=== PATIENT | female | born 1995 | race Caucasian/White ===

== ENCOUNTER 2024-03-21 07:26 | Emergency (ER) | payer OTHER, SELFPAY ==
[2024-03-21] VITALS (9 sets, daily range): BP systolic 106–147; BP diastolic 59–96; BMI 31.4
--- NOTE | 2024-03-21 07:53 | ED.GENMED ---
History of Present Illness
General
Chief Complaint: Breathing Problem
Source: patient
Time Seen by Provider: 03/21/24 07:44
History of Present Illness
History of Present Illness:
20-year-old female presents to the emergency room complaining of pain in the right chest. Patient began feeling uncomfortable about 3 days ago. It started with what she describes as pain like her diaphragm was sore in the right side. She now also
has which she describes as a 'stitch' in the posterior lateral right thorax. This is worse with taking a deep breath. Patient does not feel short of breath or short of breath with exertion. However she feels like she cannot take a deep breath
because of the pain. Patient states they did travel extensively earlier in the week to worm pick[employer] a car. They spent hours driving back and forth. She does take oral control pills. She does not smoke. She denies any discomfort in her lower
extremities.
Phy Exam
Physical Exam
Physical Exam:
General: Awake, Alert, Oriented X3. No acute distress.
Vitals: unremarkable
Head: Atraumatic
Eyes: Pupils equal, EOMI
Throat: Airway intact, no exudates
Neck: Trachea midline
Lungs: Clear and equal b/l
Heart: Regular rate, no murmurs
Abd: Soft, Nontender, No pulsatile mass
Neuro: Nonfocal
Skin: Warm, dry, no rash
Extremities: pulses equal b/l, no edema
Scores
PE Low Risk Score
Hemodynamically unstable?: No
Thrombolysis or embolectomy needed?: No
Active bleeding or high risk for bleeding?: No
>24hrs on supplemental O2 required to maintain SaO2 >90%?: No
PE diagnosed while on anticoagulation?: No
Severe pain needing IV medication required for >24 hours?: No
Medical or social reason for admission >24 hours?: No
Creatinine clearance < 30 mL/min by Cockcroft-Gault?: No
Severe liver impairment?: No
?: No
Documented hx of heparin-induced thrombocytopenia (HIT)?: No
High risk features on laboratory testing?: No
Course
Orders/Labs/Results
Orders:
Orders
03/21/24 07:37
EKG [Electrocardiogram (*1)] Urgent
Reason for Study: Chest Pain
EKG- Treatment ONCE
03/21/24 07:52
Cardiac Monitoring- Treatment ONCE
Ketorolac [Toradol] 15 mg IV NOW STA
Test Result ONCE
03/21/24 07:59
Complete Blood Count/With Diff Urgent
Comprehensive Metabolic Panel Urgent
D-Dimer Urgent
HCG, Serum Qualitative Screen Urgent
Troponin I Urgent
03/21/24 09:20
CT Chest Pe Study Urgent
Comment:
Reason For Exam: pleuritic chest pain eval for PE
03/21/24 10:31
US Periph Venous LOWER Ext Esequiel Urgent
Comment:
Reason For Exam: confirmed PE eval for dvt
03/21/24 13:34
Case Management Consult ONCE
Case Management Consult: Discharge Planning
03/21/24 13:35
Apixaban [Eliquis] 10 mg PO NOW STA
Abnormal Lab Results
03/21/24
07:59
WBC 11.3 H 10^3/uL
(4.8-10.8)
Absolute Neuts (auto) 8.4 H 10^3/uL
(1.4-6.5)
Absolute Monos (auto) 0.8 H 10^3/uL
(0.1-0.6)
Lymphocytes % 17.4 L %
(20.5-51.1)
D-Dimer 1.51 H ug/mlFEU
(0.00-0.50)
Carbon Dioxide 21 L mmol/L
(22-30)
Total Bilirubin 1.4 H mg/dl
(0.2-1.3)
AST 46 H U/L
(14-36)
ALT 90 H U/L
(0-35)
03/21/24 07:59
03/21/24 07:59
Vital Signs
Initial and Last Documented VS:
Initial Vital Signs
Temp Pulse Resp BP Pulse Ox
99.2 F 118 18 147/96 97
03/21/24 07:29 03/21/24 07:29 03/21/24 07:29 03/21/24 07:29 03/21/24 07:29
Last Documented Vital Signs
Temp Pulse Resp BP Pulse Ox
99.2 F 86 16 119/75 98
03/21/24 07:29 03/21/24 13:00 03/21/24 13:00 03/21/24 13:00 03/21/24 13:00
MDM/Problems Addressed
Differential Diagnosis Includes:
PE, ptx, pneumonia, muscular strain
MDM/Problems Addressed:
Labs show elevated D-dimer but otherwise unremarkable. CT PE study obtained. Patient has small subsegmental pulmonary emboli noted on the right. No heart strain on CT. Troponins normal. Patient has no hemodynamic instability. She is not
hypoxic. Patient is a good candidate for outpatient management. Dopplers obtained of the lower extremities and there is no DVT noted. Will start the patient on Eliquis. Case management met with the patient and provided a prescription for a
Eliquis starter pack. Patient informed that the time where she would be at risk for bleeding relative to her hemorrhoidal banding is about 2 weeks post procedure. If she has any rectal bleeding at that time she should come to the emergency room.
*Radiology
Radiology exam reviewed: radiology read reviewed
*Pulse Oximetry
Patient hypoxic: no
*EKG
Interpreted by ED Provider?: Yes
Interpretation: abnormal
Heart Rate: 98
Rate: normal
Rhythm: sinus
Mobile: normal axis
Interval: normal interval
QRS Pattern: normal QRS
Ischemia: no ischemia
*Vp Biology Interpretation
Rate: normal
Interpretation: normal
Rhythm: sinus
*Critical Care Note
Total Time (30-74mins, 75-104mins- exclusive of procedures): Not Applicable
ED Attending Note
-
Portions of this chart may have been created with voice recognition software.� Occasional wrong word or��sound alike� substitutions may have occurred due to the inherent limitations of voice recognition software.
Discharge Plan
Departure
Patient Disposition: Home (Routine Discharge)
Date of Disposition: 03/21/24
Time of Disposition: 14:12
Patient with high blood pressure during this ER visit?: No
Condition: Good
Discharge Problem:
Pulmonary emboli
Instructions: ED Low Risk PE
Prescriptions:
New
Eliquis DVT-PE Treat 30D Start 5 mg (74 tabs) tablets,dose pack
See Rx Instructions .ROUTE .COMPLEX Qty: 74 0RF
Rx Instructions:
orally per package directions
No Action
acetaminophen [Tylenol] 325 mg Tablet
650 mg PO Q6HPRN PRN (Reason: mild pain)
desogestrel-ethinyl estradiol [Apri] 0.15-0.03 mg Tablet
1 tab PO DAILY
Theragen Tablet
1 tab PO DAILY
calcium polycarbophil [FiberCon] 625 mg Tablet
625 mg PO TID
Referrals:
Jair Ac MD [Active] -
Alyse Blair MD [Family Provider] -
Oscar Bradford MD [Active] -
Interventions
Interventions:
*Risk Screen - Suicide Last Done: 03/21/24 08:09
*General Assessment Last Done: 03/21/24 07:29
*Neglect/Abuse Screening Last Done: 03/21/24 08:09
ED- Fall Risk Assessment Last Done: 03/21/24 08:09
*ED COVID-19 Vaccine History Last Done: 03/21/24 07:29
ED- Cardiac Assessment Last Done: 03/21/24 08:09
ED- Pulmonary Assessment Last Done: 03/21/24 08:09
Discharge Date and Time
Print Language: ALGERIAN
[2024-03-21] MEDS: TORADOL 15 MG IV (08:07)
[2024-03-21 08:11] LABS: % Basophils 0.5 % (0-2); % Eosinophils 0.5 % (0-6); % Immature Granulocytes 0.3 % (0-0.5); % Lymphocytes 17.4 % (20.5-51.1); % Monocytes 6.6 % (1.7-9.3); % Neutrophils 74.7 % (42.2-75.2); Absolute Basophils 0.1 10^3/uL (0-0.2); Absolute Eosinophils 0.1 10^3/uL (0-0.7); Absolute Monocytes 0.8 10^3/uL (0.1-0.6); Absolute Neutrophils 8.4 10^3/uL (1.4-6.5); Hematocrit 37.8 % (37.0-47.0); Hemoglobin 13.5 g/dL (12.0-16.0); Mean Corp Hgb Conc. 35.7 g/dL (33.0-37.0); Mean Corpuscular Hgb 30.5 pg (27.0-31.0); Mean Corpuscular Volume 85.3 fL (81.0-99.0); Mean Platelet Volume 10.2 fL (7.4-10.4); Nucleated Red Blood Cells % 0 %; Platelet Count 265 10^3/uL (130-400); Red Blood Cell Count 4.43 10^6/uL (4.20-5.40); Red Cell Dist. Width 11.5 % (11.5-14.5); White Blood Cell Count 11.3 10^3/uL (4.8-10.8)
[2024-03-21 08:24] LABS: HCG, Serum Qualitative Screen Negative
[2024-03-21 08:32] LABS: ALT (SGPT) 90 U/L (0-35); AST (SGOT) 46 U/L (14-36); Albumin 4.8 g/dl (3.5-5.0); Alkaline Phosphatase 122 U/L (38-126); Blood Urea Nitrogen 7 mg/dl (7-17); Calcium 9.9 mg/dl (8.4-10.2); Carbon Dioxide 21 mmol/L (22-30); Chloride 105 mmol/L (98-107); Estimated Creatinine Clearance > 125 ml/min; Glucose 94 mg/dl (70-99); Sodium 136 mmol/L (135-145); Total Bilirubin 1.4 mg/dl (0.2-1.3); Total Protein 7.4 g/dl (6.3-8.2); eGFR > 60.00
[2024-03-21 08:37] LABS: Troponin I < 0.012 ng/ml
[2024-03-21 08:48] LABS: D-Dimer 1.51 ug/mlFEU (0.00-0.50)
[2024-03-21] MEDS: ELIQUIS 10 MG PO (13:43)
--- NOTE | 2024-03-21 13:50 | CM ---
Addendum entered by Jennifer Mallory 03/21/24 17:25:
CM called [facility] and stated patient's Eliquis would be about $60/month. CM introduced self and role. CM spoke at patient's bedside. Mother was also in room. CM relayed VS's garcia information to mother and daughter. They were given a 30-day supply
coupon and a $10 co-pay coupon.
Original Note:
CM reviewed chart and discussed with Dr. Swan. Consult placed for Eliquis pricing. Pharmacy closed until 2pm. Will call back at 2pm.
== END 2024-03-21 14:31 | disposition home or self-care (01) ==
LOC: EMR 07:26
PROVIDERS: EMERGENCY PHYSICIAN Emergency Medicine; FAMILY PHYSICIAN Family Medicine
DX: I26.99 Other pulmonary embolism without acute cor pulmonale (principal); R07.89 Other chest pain; Z98.890 Other specified postprocedural states; Z79.3 Long term (current) use of hormonal contraceptives
CPT/HCPCS: 99284; 96374; 71275; 80053; 84484; 84703; 85025; 85379; 93005; 93970; Q9967

== ENCOUNTER 2024-03-22 04:04 | Emergency (ER) | payer OTHER, SELFPAY ==
[2024-03-22 04:19] VITALS: BP 113/84
[2024-03-22 04:45] VITALS: BP 130/80
[2024-03-22 05:00] VITALS: BP 118/78
[2024-03-22 06:00] VITALS: BP 114/73
--- NOTE | 2024-03-22 06:24 | ED.GENMED ---
History of Present Illness
General
Chief Complaint: Breathing Problem
Source: patient
Time Seen by Provider: 03/22/24 06:11
History of Present Illness
History of Present Illness:
20-year-old female presents to the emergency room concerned that she may be having 'worsening' of the pulmonary emboli. Patient was diagnosed yesterday with pulmonary emboli on the right by CT angiogram. She was hemodynamically stable and started
on Eliquis. During the night last night the patient felt like she was having pain in a new area on the right side. She also felt like her breathing was more shallow due to the pain. She does not feel short of breath per se.
Phy Exam
Physical Exam
Physical Exam:
General: Awake, Alert, Oriented X3. No acute distress.
Vitals: unremarkable
Head: Atraumatic
Eyes: Pupils equal, EOMI
Throat: Airway intact, no exudates
Neck: Trachea midline
Lungs: Clear and equal b/l
Heart: Regular rate, no murmurs
Abd: Soft, Nontender, No pulsatile mass
Neuro: Nonfocal
Skin: Warm, dry, no rash
Extremities: pulses equal b/l, no edema
Course
Orders/Labs/Results
Orders:
Orders
03/22/24 04:23
EKG [Electrocardiogram (*1)] Urgent
Reason for Study: Shortness of Breath
03/22/24 04:24
EKG- Treatment ONCE
Vital Signs
Initial and Last Documented VS:
Initial Vital Signs
Temp Pulse Resp BP Pulse Ox
99.5 F 94 16 113/84 96
03/22/24 04:19 03/22/24 04:19 03/22/24 04:19 03/22/24 04:19 03/22/24 04:19
Last Documented Vital Signs
Temp Pulse Resp BP Pulse Ox
99.5 F 92 18 124/73 98
03/22/24 04:19 03/22/24 07:30 03/22/24 07:30 03/22/24 07:00 03/22/24 07:30
MDM/Problems Addressed
MDM/Problems Addressed:
Patient presents due to some increased pain in her areas of new pain. She remains hemodynamically stable. She is not hypoxic. We will observe her for period of time
After period observation the patient remained stable. She seems to have been suffering from a bit more pleuritic chest pain last night. However she is hemodynamically stable. Her heart rate is normal. She is not hypotensive. I do not believe
there is anything occurring which would mold changer. In fact if she had been admitted yesterday she probably will be set for discharge today anyway. Continue outpatient management
*Critical Care Note
Total Time (30-74mins, 75-104mins- exclusive of procedures): Not Applicable
ED Attending Note
-
Portions of this chart may have been created with voice recognition software.� Occasional wrong word or��sound alike� substitutions may have occurred due to the inherent limitations of voice recognition software.
Discharge Plan
Departure
Patient Disposition: Home (Routine Discharge)
Date of Disposition: 03/22/24
Time of Disposition: 07:27
Patient with high blood pressure during this ER visit?: No
Condition: Good
Discharge Problem:
Pleuritic chest pain, Pulmonary embolism
Instructions: Pleuritic Chest Pain ED
Prescriptions:
No Action
acetaminophen [Tylenol] 325 mg Tablet
650 mg PO Q6HPRN PRN (Reason: mild pain)
desogestrel-ethinyl estradiol [Apri] 0.15-0.03 mg Tablet
1 tab PO DAILY
Theragen Tablet
1 tab PO DAILY
calcium polycarbophil [FiberCon] 625 mg Tablet
625 mg PO TID
Eliquis DVT-PE Treat 30D Start 5 mg (74 tabs) tablets,dose pack
See Rx Instructions .ROUTE .COMPLEX Qty: 74 0RF
Rx Instructions:
orally per package directions
Referrals:
Alyse Blair MD [Family Provider] -
Activity Restrictions/Additional Instructions:
You can take 400mg of ibuprofen every 6 hours for the next couple of days to help with the pain. Return if you feel you are becoming significantly more sob.
Interventions
Interventions:
*Risk Screen - Suicide Last Done: 03/22/24 04:19
*General Assessment Last Done: 03/22/24 04:19
*Neglect/Abuse Screening Last Done: 03/22/24 04:19
ED- Fall Risk Assessment Last Done: 03/22/24 04:45
*Nursing Disposition Last Done: 03/22/24 08:08
ED- Cardiac Assessment Last Done: 03/22/24 04:45
ED- Pulmonary Assessment Last Done: 03/22/24 04:45
Discharge Date and Time
Discharge Date/Time: 03/22/24 08:08
Print Language: SETSWANA
[2024-03-22 07:00] VITALS: BP 124/73
== END 2024-03-22 08:08 | disposition home or self-care (01) ==
LOC: EMR 04:04
PROVIDERS: EMERGENCY PHYSICIAN Emergency Medicine; FAMILY PHYSICIAN Family Medicine
DX: R07.81 Pleurodynia (principal); I26.99 Other pulmonary embolism without acute cor pulmonale
CPT/HCPCS: 99283; 93005

== ENCOUNTER 2024-03-28 19:25 | Inpatient (IN) | payer OTHER, SELFPAY ==
[2024-03-28] VITALS (7 sets, daily range): BP systolic 118–136; BP diastolic 73–103; BMI 30.4
[2024-03-28 14:09] LABS: % Basophils 0.6 % (0-2); % Eosinophils 0.6 % (0-6); % Immature Granulocytes 0.4 % (0-0.5); % Lymphocytes 20.2 % (20.5-51.1); % Monocytes 4.6 % (1.7-9.3); % Neutrophils 73.6 % (42.2-75.2); Absolute Basophils 0.1 10^3/uL (0-0.2); Absolute Eosinophils 0.1 10^3/uL (0-0.7); Absolute Monocytes 0.5 10^3/uL (0.1-0.6); Absolute Neutrophils 7.3 10^3/uL (1.4-6.5); Hematocrit 36.8 % (37.0-47.0); Hemoglobin 13.1 g/dL (12.0-16.0); Mean Corp Hgb Conc. 35.6 g/dL (33.0-37.0); Mean Corpuscular Volume 84.4 fL (81.0-99.0); Mean Platelet Volume 10.3 fL (7.4-10.4); Nucleated Red Blood Cells % 0 %; Platelet Count 449 10^3/uL (130-400); Red Blood Cell Count 4.36 10^6/uL (4.20-5.40); Red Cell Dist. Width 11.3 % (11.5-14.5)
[2024-03-28 14:19] LABS: HCG, Serum Qualitative Screen Negative
[2024-03-28 14:29] LABS: INR 1.46; PT 17.6 Sec (11.4-14.6)
[2024-03-28 14:30] LABS: APTT 43.5 Sec (23.4-35.0)
[2024-03-28 14:32] LABS: ALT (SGPT) 140 U/L (0-35); AST (SGOT) 80 U/L (14-36); Albumin 4.8 g/dl (3.5-5.0); Alkaline Phosphatase 149 U/L (38-126); Blood Urea Nitrogen 8 mg/dl (7-17); Calcium 10.5 mg/dl (8.4-10.2); Carbon Dioxide 25 mmol/L (22-30); Chloride 104 mmol/L (98-107); Glucose 99 mg/dl (70-99); Potassium 4.1 mmol/L (3.5-5.1); Sodium 138 mmol/L (135-145); Total Bilirubin 0.7 mg/dl (0.2-1.3); Total Protein 7.5 g/dl (6.3-8.2); eGFR > 60.00
--- NOTE | 2024-03-28 15:10 | ED.GENMED ---
History of Present Illness
General
Chief Complaint: Anal/Rectal Problem
Source: patient
Time Seen by Provider: 03/28/24 14:58
History of Present Illness
History of Present Illness:
20-year-old female presents to the emergency room complaining of bleeding from rectum. Patient had hemorrhoidal banding performed on March 17. Subsequent to that the patient was seen here in the emergency room for pleuritic chest pain and was found
to have pulmonary emboli. She was hemodynamically stable and started on Eliquis. Patient has been doing well from a PE standpoint but began having rectal bleeding 4 to 5 days ago. She was seen in the colorectal office today where efforts were
made to cauterize the ulceration that is left from the hemorrhoid sloughing off. She was told to return to the emergency room if the bleeding continued to be significant. Patient went to the bathroom and stated that the toilet bowl was discolored
from blood. Patient denies any abdominal pain. She is not short of breath.
Phy Exam
Physical Exam
Physical Exam:
General: Awake, Alert, Oriented X3. No acute distress.
Vitals: unremarkable
Head: Atraumatic
Eyes: Pupils equal, EOMI
Throat: Airway intact, no exudates
Neck: Trachea midline
Lungs: Clear and equal b/l
Heart: Regular rate, no murmurs
Abd: Soft, Nontender, No pulsatile mass
Rectal: Deferred at the patient had an evaluation at the colorectal office today
Neuro: Nonfocal
Skin: Warm, dry, no rash
Extremities: pulses equal b/l, no edema
Course
Orders/Labs/Results
Orders:
Orders
03/28/24 13:52
Test Result ONCE
03/28/24 13:55
Type+Screen Urgent
Complete Blood Count/With Diff Urgent
Comprehensive Metabolic Panel Urgent
HCG, Serum Qualitative Screen Urgent
Comment: Notify provider if positive test present
PTT Urgent
Prothrombin Time Urgent
03/28/24 Dinner
Regular
Regular
03/28/24 19:11
Docusate Sodium [Colace] 100 mg PO NOW STA
03/28/24 19:12
Admit/Transfer Patient As Directed
Co-Sign Provider:
Level of Care: Inpatient admission
Assign to:: Medical/Surgical
Physician / Group: hair cruz
Diagnosis: Hemorrhoidal ulceration bleeding on Eliquis, transaminitis unclear
Reason for Hospitalization: Hemorrhoidal ulceration bleeding on Eliquis, transaminitis unclear
Expected length of stay greater than two midnights?: Yes
ELOS- Estimated Length of Stay in days: 3
I certify the patient meets the requirements for IP care: Yes
Code Status As Directed
Resuscitation Status: Full Code
Consult Colorectal Surgery [ColoRectal Surgery Consult] Routine
Consulting Provider: Armin Mclaughlin
Was physician already notified: Yes
Reason for consult: Hemorrhoidal bleeding from left sided ulceration
03/29/24 Breakfast
NPO
Allow oral meds: Yes
Allow clear liquids: No
NPO with Ice Chips: No
Lipid Profile [Cardiovascular Evaluation] IN AM
US Abdomen Limited IN AM
Comment:
Reason For Exam: transaminitis
03/29/24 08:00
Docusate Sodium [Colace] 100 mg PO BID
Abnormal Lab Results
03/28/24
13:55
Hct 36.8 L %
(37.0-47.0)
RDW 11.3 L %
(11.5-14.5)
Plt Count 449 H 10^3/uL
(130-400)
Absolute Neuts (auto) 7.3 H 10^3/uL
(1.4-6.5)
Lymphocytes % 20.2 L %
(20.5-51.1)
PT 17.6 H Sec
(11.4-14.6)
APTT 43.5 H Sec
(23.4-35.0)
Calcium 10.5 H mg/dl
(8.4-10.2)
AST 80 H U/L
(14-36)
ALT 140 H U/L
(0-35)
Alkaline Phosphatase 149 H U/L
(38-126)
03/28/24 13:55
03/28/24 13:55
Vital Signs
Initial and Last Documented VS:
Initial Vital Signs
Temp Pulse Resp BP Pulse Ox
99.2 F 100 16 130/103 98
03/28/24 13:48 03/28/24 13:48 03/28/24 13:48 03/28/24 13:48 03/28/24 13:48
Last Documented Vital Signs
Temp Pulse Resp BP Pulse Ox
99.2 F 80 18 129/79 97
03/28/24 13:48 03/28/24 17:51 03/28/24 17:51 03/28/24 17:51 03/28/24 17:51
MDM/Problems Addressed
Differential Diagnosis Includes:
Bleeding from hemorrhoidal banding site, diverticular bleeding, anal fissure
MDM/Problems Addressed:
Patient has bleeding from her rectum. She was seen in the colorectal surgery office where they discovered she had significant bleeding from her banding site. They performed some interventions in the office but when the patient went home she again
passed blood after a bowel movement. Patient will be hospitalized under the medicine service who can appropriately handle her anticoagulation. Colorectal surgery will follow along and she may need surgical intervention. Patient's LFTs are mildly
elevated. This was part of my signout to the hospitalist.
*Pulse Oximetry
Patient hypoxic: no
*Critical Care Note
Total Time (30-74mins, 75-104mins- exclusive of procedures): Not Applicable
ED Attending Note
-
Portions of this chart may have been created with voice recognition software.� Occasional wrong word or��sound alike� substitutions may have occurred due to the inherent limitations of voice recognition software.
Discharge Plan
Departure
Patient Disposition: Admit
Date of Disposition: 03/28/24
Time of Disposition: 18:31
Admit to: Med/Surg
Presentation/result/management discussed w/ accepting MD/DO: Hospitalist
Condition: Fair
Discharge Problem:
Bright red rectal bleeding, Anticoagulant effect
Interventions
Interventions:
*Risk Screen - Suicide Last Done: 03/28/24 13:48
*General Assessment Last Done: 03/28/24 13:48
*Neglect/Abuse Screening Last Done: 03/28/24 13:48
ED- Fall Risk Assessment Last Done: 03/28/24 15:10
*ED COVID-19 Vaccine History Last Done: 03/28/24 14:09
TN-Yezqmi-Czjsaepcve Assessment Last Done: 03/28/24 15:10
ED-Skin Assessment Last Done: 03/28/24 15:10
--- NOTE | 2024-03-28 18:41 | HPS.HSE ---
Family Physician
-
Family Physician: Alyse Blair MD
Chief Complaint
-
Hemorrhoidal bleeding
History of Present Illness
28-year-old female who had hemorrhoidal banding performed on March 17, 2024. She was also seen March 21, 2024 due to pleuritic chest pain and it was discovered she had pulmonary emboli right lower lobe and right upper lobe peripheral branch on her CT
chest and was started on oral Eliquis. She has been having rectal bleeding over the past 4 to 5 days once a day bright red with bowel movement only. She does believe she strained a few days ago. She was seen in colorectal office today where
attempts were made to cauterize the ulceration to the left of the hemorrhoidal sloughing off area but was unsuccessful. She reports she returned home went to the bathroom and had large amount of blood in the toilet. She did take her 10 mg dose of
Eliquis this morning at 1030 03/28/2024: She denies abdominal pain, nausea, vomiting, diarrhea, urinary symptoms fever, chills, chest pain, palpitations, shortness of breath. she has PMH hemorrhoids, pulmonary embolism, hormonal control, COVID
2020, COVID vaccinated x 4 last vaccineted June 2022.
Medical History
Past Medical History
Past Medical History: Reports Other
Additional Past Medical History:
Pulmonary embolism right lower lobe and right upper lobe peripheral branch Dx March 21, 2024
Hormonal control-patient stopped after Dx of PE
Hemorrhoids
COVID 19 infection 2020
Past Surgical History: Reports Other
Additional Past Surgical History:
[place] teeth extraction
Hemorrhoidal banding 03/17/2024
Social History
Tobacco: Non-smoker
Alcohol: Occasional
Drug: None
Personal: Single
Living: With Family (Parents)
Employment: Employed
Family History
Family History: Other (Mother HLD Father type 1 diabetes diagnosis age 19 2 brothers healthy)
Allergies / Home Medications
Allergies reflects when Allergies were last updated in [facility].
Home Medications with original date entered in [facility]
Allergy/Medication List:
Allergies
Allergy/AdvReac Type Severity Reaction Status Date / Time
No Known Allergies Allergy Verified 03/28/24 13:47
Home Medications
acetaminophen 325 mg tablet (Tylenol) 650 mg PO Q6HPRN PRN mild pain 03/21/24
apixaban 5 mg (74 tabs) tablets in a dose pack (Collibra DVT-PE Treat 30D Start) See Rx Instructions PO .COMPLEX #74 ea 03/21/24
calcium polycarbophil 625 mg tablet (FiberCon) 1,875 mg PO DAILY 03/21/24
therapeutic multivitamin 1 tab PO DAILY 03/21/24
Review of Systems
-
History Source: Patient and Family (Mother at bedside)
A 12 point ROS was completed and negative except as noted: Yes
Constitutional: Denies Weight Gain, Fatigue or Chills
EENT: Denies Sore Throat or Runny Nose
Respiratory: Denies Cough or Trouble Breathing
Cardiac: Denies Chest Pain, Diaphoresis, Palpitations or Syncope
Abdomen/GI: Denies Abdominal Pain, Nausea, Vomiting, Diarrhea, Constipated or Bloody Stools
: Denies Dysuria, Frequency, Flank Pain, Incontinence, Difficulty Voiding or Urgency
Musculoskeletal: Denies Joint Pain or Edema
Skin: Denies Itching or Rash
Neurological: Denies Dizzy, Headache or Weakness
Endocrine: Reports No Symptoms
Hematologic/Lymphatic: Reports No Symptoms
Psych: Reports Calm
Physical Exam
Vital Signs
Vital Signs
Temp Pulse Resp BP Pulse Ox
99.2 F 80 18 129/79 97
03/28/24 13:48 03/28/24 17:51 03/28/24 17:51 03/28/24 17:51 03/28/24 17:51
Physical Exam
General: No Apparent Distress, Comfortable and Conversant; No Pain, Fever or Chills
HEENT: NormoCephalic, Anicteric, Moist mucous membranes, PERRLA, [place] Conjunctivae and No Ptosis
Respiratory: Clear; No Wheezes, Rales or Rhonchi
Cardiac: S1/S2 and Regular Rhythm; No Murmur, Rub, Gallop or Peripheral Edema
Breast: Deferred by me
GI: Soft, Non Tender, Non Distended, Normal Bowel Sounds and No Hepatosplenomegaly
Rectal: Deferred by Provider (Patient was examined in office by colorectal surgery today)
Genito-urinary: Deferred by me
Musculoskeletal: No Clubbing, No Cyanosis and No Edema
Skin: Warm and Dry; No Rash
Neuro: AO x 3, No Motor Deficits, Nonfocal/grossly intact, Cranial Nerves Intact and No Sensory Deficits; No Slurred Speech, Facial Droop or Tremors
Psych: Calm
Laboratory Results
-
03/28/24 13:55
03/28/24 13:55
Laboratory Results
PT 17.6 Sec (11.4-14.6) H 03/28/24 13:55
INR 1.46 03/28/24 13:55
APTT 43.5 Sec (23.4-35.0) H 03/28/24 13:55
Total Bilirubin 0.7 mg/dl (0.2-1.3) 03/28/24 13:55
AST 80 U/L (14-36) H 03/28/24 13:55
ALT 140 U/L (0-35) H 03/28/24 13:55
Alkaline Phosphatase 149 U/L (38-126) H 03/28/24 13:55
Impression/Plan
-
Impression/plan:
Admit to [facility]
#Rectal bleeding status post hemorrhoidal banding on Eliquis
#S/p Hemorrhoidal banding 03/17/2024
Hgb stable 13.1, BP 129/79
-Hold oral Eliquis last dose was 1030 this a.m. 03/28/2024
-Consult colorectal surgery Dr. Mclaughlin aware plan is for OR this weekend if hemorrhoidal bleeding
-hCG negative, just finished menses 3 days ago 0
-Follow CBC
#Pulmonary embolism right lower lobe and right upper lobe peripheral branch Dx March 21, 2024 possibly related to control
-Patient stopped hormonal control after diagnosis of PE
Was started on Eliquis 10 mg twice daily completed 7 days when restarts will resume at Eliquis 5 mg twice daily
-Will hold Eliquis observe overnight for bleeding if no bleeding okay to resume Eliquis
If rectal bleeding tomorrow patient was placed on IV heparin drip and be taken to the OR by colorectal surgery
-Regular diet now
-N.p.o. after midnight in case need for OR
-Add Colace
#Acute transaminitis unclear etiology
Follow CMP
-Check lipid profile
-Check right upper quadrant ultrasound-if okay may follow-up outpatient GI
#Obesity due to excess calorie consumption�BMI 30.4
-Weight loss recommended low-fat diet
DVT prophylaxis
Patient currently on Eliquis will transition to IV heparin for OR and then back to oral Eliquis
Full code
--- NOTE | 2024-03-28 18:48 | W.PN.UPDATE ---
Update Note
Progress Note Update
Patient seen with MANAGER RAIL, concur with the history physical and assessment and plan.
Briefly, this is a 28-year-old female with comes into the hospital from the ED surgical unit with episode of bright red blood per rectum. Patient received hemorrhoidal banding on March 17. She developed a PE diagnosed on March 21. Patient placed
on Eliquis. She is not having bleeding at the banding site. Will rectal stop her in the office and try to take care of the bleeding but it recurred. She was noted to have significant amount of bleeding at the time. And was sent to the emergency
department.
In the ED patient is well-appearing hemodynamically stable and in no acute distress. Hemoglobin is stable at 13.1. Platelet count is normal. Electrolytes are within normal limits. She has gradually increasing LFTs which was elevated prior to
starting eliquis.
GI bleed - Bleeding s/p hemorrhoidal banding in setting of initiation of Eliquis for PE. Stable hemodynamics and CBC. No current active bleeding.
- admit to obs
- hold eliquis tonight (finished 1 week of 10 bid) and eval for further bleeding. D/W Colorectal. If no further bleeding, start Eliquis 5 bid. If bleeding, bridge with heparin and plan for OR early next week.
- initiate bowel regimen/stool softening
- type and screen and serial H/H.
Transaminitis - Mild elevation in LFTs and slightly increased since March 17. No abdominal pain, nausea, vomiting or diarrhea. Denies high dose acetaminophen. No history of ETOH. Moderately elevated BMI. No known history of stones. No new meds
other than Eliquis which is rarely associated with transaminitis.
- RUQ U/S, trend LFTs. check lipid panel for hyperlipidemia.
- if stable findings above, f/u with outpatient GI.
Full Code
--- NOTE | 2024-03-28 19:12 | CON.CRS ---
Consultation
-
Date/Time Consultation Requested: 03/28/24 @19:12
Date/Time Consultation Performed: 03/28/24 @19:12
Requesting Provider: DANIELLE Joy
Performing Provider: Efraín Mclaughlin MD
Reason for Consultation: Rectal bleeding
Medical History
-
Chief Complaint: Rectal bleeding for the past several days
History of Present Illness:
20-year-old female who underwent a rubber band ligation of a prolapsing left posterior internal hemorrhoid on 03/17/[address] Richards. The patient had little to no bleeding prior. 4 days later she developed some pleuritic chest pain and was
diagnosed with a pulmonary embolism and started on Eliquis as an outpatient. Lower extremity duplex scanning was negative for DVT. For the past 4 to 5 days she has had some bright red blood per rectum seen in the toilet following a bowel movement.
She has been moving her bowels about once a day but prior to the onset of the bleeding, she was constipated. She denies any rectal pain or sense of prolapse. She states that there was some blood in the toilet but is not sure if there are clots.
She denies any abdominal pain, dizziness or lightheadedness.
She called the office this morning and was seen by Dr. Lozada and Isa Vergara. The area sensitized with lidocaine with epinephrine and attempt at placing quick clot was unsuccessful. When she was at home she had another bowel movement and there
was some blood and she was advised to come to the emergency room.
While here she remains hemodynamically stable and is not tachycardic. Her hemoglobin is 13.1 g/dL. Her last dose of Eliquis 10 mg was at 1030 this morning and her next dose is reduced at 5 mg.
Past Medical History
Past Medical History: Other (Pulmonary embolism)
Past Surgical History: Other (Hemorrhoid banding 7023; wisdom teeth extraction)
Social History
Tobacco: Non-Smoker
Alcohol: Occasional
Drug: None
Personal: Single
Living: With Family
Family History
Family History: Reviewed & Not Pertinent
Allergies / Home Medications
Allergy/AdvReac Type Severity Reaction Status Date / Time
No Known Allergies Allergy Verified 03/28/24 13:47
�Medication �Instructions �Recorded �Confirmed �Type
acetaminophen 325 mg tablet 650 mg PO Q6HPRN PRN mild pain 03/21/24 03/28/24 History
(Tylenol)
apixaban 5 mg (74 tabs) tablets in See Rx Instructions PO .COMPLEX 03/21/24 03/28/24 Rx
a dose pack ([employer] DVT-PE Treat #74 ea
30D Start)
calcium polycarbophil 625 mg 1,875 mg PO DAILY 03/21/24 03/28/24 History
tablet (FiberCon)
therapeutic multivitamin 1 tab PO DAILY 03/21/24 03/28/24 History
Review of Systems
-
History Source: Patient
All other systems: Negative unless noted
A 10 point review of systems was completed, and was negative except as per HPI.
Physical Exam
Vital Signs
Temp 99.2 F 03/28/24 13:48
Pulse 80 03/28/24 17:51
Resp Rate 18 03/28/24 17:51
Blood pressure 129/79 03/28/24 17:51
SaO2 97 03/28/24 17:51
03/27/24 03/28/24 03/29/24
06:59 06:59 06:59
Actual Weight 85.4 kg
Body Mass Index (BMI) 30.4
Lab Results / Allergies
03/28/24 13:55
03/28/24 13:55
WBC 10.0 10^3/uL (4.8-10.8) 03/28/24 13:55
Hgb 13.1 g/dL (12.0-16.0) 03/28/24 13:55
Hct 36.8 % (37.0-47.0) L 03/28/24 13:55
Plt Count 449 10^3/uL (130-400) H 03/28/24 13:55
Abs Immat Gran (auto) 0.0 10^3/uL (0-0.05) 03/28/24 13:55
Neutrophils % 73.6 % (42.2-75.2) 03/28/24 13:55
Allergy/AdvReac Type Severity Reaction Status Date / Time
No Known Allergies Allergy Verified 03/28/24 13:47
Physical Exam
General: Well Developed, Well Nourished and No Apparent Distress
HEENT: Anicteric
GI: Soft, Non Tender and Non Distended
Musculoskeletal: No Edema
Neuro: Awake and Alert
Assessment / Plan
-
Rectal bleeding most likely due to the banding was performed. She does not appear to be actively bleeding but is only having some blood when she moves her bowels.
I discussed the evaluation and treatment options with the patient and her mother and the plan is to admit for observation to the hospitalist service. Her Eliquis will be held for now and consideration for heparin based upon her clinical course. If
the bleeding worsens or persists, I recommend a rectal exam under anesthesia and suturing of the ulcer site. I explained that the bleeding can recur despite surgery. At the present time I do not feel there is an indication for intervention. Will
follow.
--- NOTE | 2024-03-28 21:00 | PTCARENOTE ---
Pt received from ED via stretcher. Ambulated to bed independently w/o incident. Oriented to surroundings and plan of care discussed. Admission and assessment completed. Instructed to ring for RN if pt has bowel movement, verbalizes
understanding. Reports intermittent R sided pleuritic pain - tolerable at present. Call elder w/in reach, plan of care ongoing.
[2024-03-28] MEDS: COLACE 100 MG PO (21:39)
[2024-03-29 00:16] VITALS: BP 119/80
[2024-03-29 07:35] VITALS: BP 119/81
[2024-03-29 07:40] LABS: % Eosinophils 2.4 % (0-6); % Immature Granulocytes 0.4 % (0-0.5); % Monocytes 8.2 % (1.7-9.3); Absolute Basophils 0.1 10^3/uL (0-0.2); Absolute Eosinophils 0.2 10^3/uL (0-0.7); Absolute Lymphocytes 2.9 10^3/uL (1.2-3.4); Absolute Monocytes 0.6 10^3/uL (0.1-0.6); Absolute Neutrophils 3.3 10^3/uL (1.4-6.5); Hematocrit 36.8 % (37.0-47.0); Hemoglobin 12.7 g/dL (12.0-16.0); Mean Corp Hgb Conc. 34.5 g/dL (33.0-37.0); Mean Corpuscular Hgb 29.5 pg (27.0-31.0); Mean Corpuscular Volume 85.4 fL (81.0-99.0); Mean Platelet Volume 10.5 fL (7.4-10.4); Nucleated Red Blood Cells % 0 %; Platelet Count 391 10^3/uL (130-400); Red Blood Cell Count 4.31 10^6/uL (4.20-5.40); Red Cell Dist. Width 11.3 % (11.5-14.5)
[2024-03-29 07:59] LABS: ALT (SGPT) 129 U/L (0-35); AST (SGOT) 63 U/L (14-36); Albumin 4.4 g/dl (3.5-5.0); Alkaline Phosphatase 132 U/L (38-126); Blood Urea Nitrogen 10 mg/dl (7-17); Calcium 10.1 mg/dl (8.4-10.2); Carbon Dioxide 26 mmol/L (22-30); Chloride 104 mmol/L (98-107); Estimated Creatinine Clearance 115 ml/min; Glucose 86 mg/dl (70-99); HDL Cholesterol 46 mg/dl; LDL Cholesterol, Calculated 163 mg/dl; Potassium 4.8 mmol/L (3.5-5.1); Sodium 140 mmol/L (135-145); Total Bilirubin 0.7 mg/dl (0.2-1.3); Total Cholesterol 227 mg/dl (50-199); Total Protein 7.1 g/dl (6.3-8.2); Triglyceride 94 mg/dl (10-149); Very Low Density Lipoprotein 18 mg/dl (0-30); eGFR > 60.00
--- NOTE | 2024-03-29 08:21 | W.PN.HOSP.TC ---
Addendum entered and electronically signed by Devan Diaz MD 03/29/24 15:34:
Patient had bleeding in the afternoon with a small soft stool. Colorectal surgery recommends holding Eliquis, for OR tomorrow, trend hemoglobin.
Original Note:
Today's Communication/Plan
-
see bold
Assessment / Plan
Assessment / Plan
HPI: 28-year-old female who had hemorrhoidal banding performed on March 17, 2024. She was also seen March 21, 2024 due to pleuritic chest pain and it was discovered she had pulmonary emboli right lower lobe and right upper lobe peripheral branch on
her CT chest and was started on oral Eliquis. She has been having rectal bleeding over the past 4 to 5 days once a day bright red with bowel movement only.
#Rectal bleeding status post hemorrhoidal banding on Eliquis
#S/p Hemorrhoidal banding 03/17/2024
-Hold oral Eliquis last dose was 1030 this a.m. 03/28/2024
-Appreciate colorectal surgery input, no plans for intervention
-Start miralax BID, monitor rectal bleeding
#Pulmonary embolism right lower lobe and right upper lobe peripheral branch Dx March 21, 2024 possibly related to control
-Patient stopped hormonal control after diagnosis of PE
Was started on Eliquis 10 mg twice daily completed 7 days when restarts will resume at Eliquis 5 mg twice daily
-Will resume eliquis 5 mg bid tonight
#Acute transaminitis unclear etiology
Follow CMP
-Improving
-Check right upper quadrant ultrasound-if okay may follow-up outpatient GI
#Obesity due to excess calorie consumption�BMI 30.4
-Weight loss recommended low-fat diet
DVT prophylaxis- resume eliquis
Full code
Total time spent to see the patient on the floor, examine the patient, review data and lab results, discuss treatment plan with patient, nursing staff around 50 minutes.
Physical Exam
General: Obese, no acute distress
HEENT: Normocephalic, Atraumatic, EOMI, MMM
Respiratory: Clear to Auscultation bilaterally
Cardiac: Normal S1/S2, Regular Rate and Rhythm
GI: Soft, Nontender, Nondistended, Normal Bowel Sounds
Extremities: No Clubbing, Cyanosis, or Edema
Neuro: Nonfocal/Grossly Intact
Psych: Calm, Cooperative
Derm: No Visible lesions
Anticipated Discharge: Within 24 hours
Subjective/Interval History
-
Date of Service: March 29, 2024
Patient has not had a bowel movement. She does not have any bloody stools. Her rectal bleeding occurred when she had a bowel movement. No shortness of breath. No fever, no vomiting.
Objective Data
-
Labs:
Laboratory Results
03/29/24
06:40
WBC 7.0
Hgb 12.7
Hct 36.8 L
Plt Count 391
Sodium 140
Potassium 4.8
Chloride 104
Carbon Dioxide 26
BUN 10
Creatinine 0.8
Glucose 86
Calcium 10.1
Total Bilirubin 0.7
AST 63 H
ALT 129 H
Alkaline Phosphatase 132 H
Vital Signs:
Vital Signs
Temp Pulse Resp BP Pulse Ox
98.0 F 88 18 119/81 99
03/29/24 07:35 03/29/24 07:35 03/29/24 07:35 03/29/24 07:35 03/29/24 07:35
I&O
03/28/24 03/29/24 03/30/24
06:59 06:59 06:59
Intake Total 420 / 420
Balance 420 / 420
[2024-03-29] MEDS: COLACE 100 MG PO ×2 (08:31→21:38)
--- NOTE | 2024-03-29 10:08 | W.PN.CRS1 ---
Today's Communication / Plan
-
Regular diet
dispo planning
Assessment/Plan
-
28 yo female with recent hemorrhoid banding on 03/17/24 with dx of PE on 03/21/24 and initiation of loading dose Eliquis with subsequent rectal bleeding. She noted blood with stools and present for evaluation. Eliquis currently on hold with no further
bleeding.
AFVSS
Labs stable
No plans for surgery as bleeding has stopped
--Ok for regular diet
--Continue stool softeners
--AC resumption as per primary team
Subjective Data
Subjective Data
Date of Service: March 29, 2024
Patient seen and examined at bedside with Dr. Mclaughlin. Denies further bleeding. No pain.
Objective Data
-
Vital Signs
Temp Pulse Resp BP Pulse Ox
98.0 F 88 18 119/81 99
03/29/24 07:35 03/29/24 07:35 03/29/24 07:35 03/29/24 07:35 03/29/24 07:35
Intake & Output
03/28/24 03/29/24 03/30/24
06:59 06:59 06:59
Intake Total 420 / 420
Balance 420 / 420
Intake:
Oral fluids 420 / 420
Other:
Number of approximated MODERATE 3
amounts of urine
Lab Results
03/29/24 06:40
03/29/24 06:40
Physical Exam
-
General: No Acute Distress
Abdomen: Soft, Non Distended and Non Tender
Skin: Warm and Dry
Incision: Clear, Dry, Intact
[2024-03-29] MEDS: MIRALAX 17 GRAMS PO (11:54)
--- NOTE | 2024-03-29 12:58 | CM ---
Initial assessment completed with patient with mother in room. Patient lives with her parents in a 2 story home plus basement with 1 step to enter, B/B on 2nd with full bath on 1st, no DME or in-home services. C[employer]TA[employer]ESS was independent, drove and
worked. No psychiatric hospitalizations. Pharmacy is
[facility] on [facility] [address], PCP is Dr. Alyse Blair. Anticipate no needs at discharge.
--- NOTE | 2024-03-29 14:22 | W.PN.UPDATE ---
Update Note
Progress Note Update
S: Passed a small, soft brown stool with mild to moderate amount of bright red blood surrounding it
B: Eliquis recently prescribed for new PE has now been on hold >24h
A: Bleeding persists with bowel movements
R: NPO after Mn for tentative OR in AM. Continue to hold Eliquis. If AC needed in the interim, ok for heparin gtt no bolus, hold at 1am for OR.
[2024-03-29 14:47] LABS: Hematocrit 35.6 % (37.0-47.0); Hemoglobin 12.7 g/dL (12.0-16.0)
[2024-03-29 15:40] VITALS: BP 128/83
--- NOTE | 2024-03-29 18:11 | PTCARENOTE ---
pt showered and bed linen changed pt will go in the OR tomorrow.
--- NOTE | 2024-03-29 20:17 | PTCARENOTE ---
Pt sent to U/S via WC
--- NOTE | 2024-03-29 22:45 | PTCARENOTE ---
Pt w/mod formed BM. Bright red blood noted in toilet. Peripad in place with some drainage via rectum.
[2024-03-29 23:25] VITALS: BP 110/74
[2024-03-29 23:42] VITALS: BP 110/74
[2024-03-30] VITALS (7 sets, daily range): BP systolic 119–129; BP diastolic 59–76
--- NOTE | 2024-03-30 06:38 | PTCARENOTE ---
Pt instructed on how to cleanse w/CHG cloths. Clean gown provided and undergarments removed.
[2024-03-30 06:42] LABS: Hematocrit 37.7 % (37.0-47.0); Hemoglobin 13.2 g/dL (12.0-16.0); Mean Corpuscular Hgb 30.2 pg (27.0-31.0); Mean Corpuscular Volume 86.3 fL (81.0-99.0); Mean Platelet Volume 10.1 fL (7.4-10.4); Platelet Count 418 10^3/uL (130-400); Red Blood Cell Count 4.37 10^6/uL (4.20-5.40); Red Cell Dist. Width 11.3 % (11.5-14.5); White Blood Cell Count 7.2 10^3/uL (4.8-10.8)
[2024-03-30 07:09] LABS: ALT (SGPT) 143 U/L (0-35); AST (SGOT) 80 U/L (14-36); Albumin 4.7 g/dl (3.5-5.0); Alkaline Phosphatase 136 U/L (38-126); Direct Bilirubin 0.3 mg/dl (0.0-0.4); Total Bilirubin 0.6 mg/dl (0.2-1.3); Total Protein 7.5 g/dl (6.3-8.2)
--- NOTE | 2024-03-30 08:14 | W.PN.HOSP.TC ---
Today's Communication/Plan
-
For OR today
Assessment / Plan
Assessment / Plan
HPI: 28-year-old female who had hemorrhoidal banding performed on March 17, 2024. She was also seen March 21, 2024 due to pleuritic chest pain and it was discovered she had pulmonary emboli right lower lobe and right upper lobe peripheral branch on
her CT chest and was started on oral Eliquis. She has been having rectal bleeding over the past 4 to 5 days once a day bright red with bowel movement only.
#Rectal bleeding status post hemorrhoidal banding exacerbated by Eliquis use
#S/p Hemorrhoidal banding 03/17/2024
-Hold oral Eliquis last dose was 1030 this a.m. 03/28/2024
-Appreciate colorectal surgery input, for OR today
-Resume eliquis when cleared by CRS
#Pulmonary embolism right lower lobe and right upper lobe peripheral branch Dx March 21, 2024 possibly related to control
-Patient stopped hormonal control after diagnosis of PE
Was started on Eliquis 10 mg twice daily completed 7 days when restarts will resume at Eliquis 5 mg twice daily
-Resume eliquis when cleared by CRS
-Patient is not hypoxic, or short of breath. No need for IV heparin currently
#Acute transaminitis unclear etiology
Right upper quadrant abdominal ultrasound shows fatty liver
Follow-up with GI in the office
#Obesity due to excess calorie consumption�BMI 30.4
-Weight loss recommended low-fat diet
DVT prophylaxis- resume eliquis
Full code
Total time spent to see the patient on the floor, examine the patient, review data and lab results, discuss treatment plan with patient, nursing staff around 40 minutes.
Physical Exam
General: Obese, no acute distress
HEENT: Normocephalic, Atraumatic, EOMI, MMM
Respiratory: Clear to Auscultation bilaterally
Cardiac: Normal S1/S2, Regular Rate and Rhythm
GI: Soft, Nontender, Nondistended, Normal Bowel Sounds
Extremities: No Clubbing, Cyanosis, or Edema
Neuro: Nonfocal/Grossly Intact
Psych: Calm, Cooperative
Derm: No Visible lesions
Anticipated Discharge: Within 24 hours
Subjective/Interval History
-
Date of Service: March 30, 2024
Patient reports having 2 soft bowel movements yesterday, associated with rectal bleeding. No fever, no vomiting.
Objective Data
-
Labs:
Laboratory Results
03/30/24
06:33
WBC 7.2
Hgb 13.2
Hct 37.7
Plt Count 418 H
Total Bilirubin 0.6
AST 80 H
ALT 143 H
Alkaline Phosphatase 136 H
Vital Signs:
Vital Signs
Temp Pulse Resp BP Pulse Ox
98.2 F 88 18 110/74 98
03/29/24 23:25 03/29/24 23:25 03/29/24 23:25 03/29/24 23:25 03/30/24 03:48
I&O
03/29/24 03/30/24 03/31/24
06:59 06:59 06:59
Intake Total 420 / 420 640 / 640
Balance 420 / 420 640 / 640
[2024-03-30] MEDS: COLACE PO (10:03)
--- NOTE | 2024-03-30 10:30 | W.IMMPOSTOP ---
Surgical Immed Post Op Note
-
Primary Surgeon: Efraín Mclaughlin MD
Metal Buggy Operator: Nickie Maharaj MD
Pre-op Diagnosis: Rectal bleeding
Post-op Diagnosis: Same
Procedure Performed: Rectal EUA and suture ligation of rectal ulcer
Anesthesia Type: MAC
Specimen / Cultures: None
Estimated Blood Loss: 2cc
Complications: None
Operative Findings: Slight oozing in the right posterior internal hemorrhoid banding site
Enlarged right posterior external hemorrhoid (not excised)
Patient's mother updated.
--- NOTE | 2024-03-30 11:47 | W.DCSUMMARY ---
Discharge Summary
Discharge Data
Date of Admission: 03/28/24
Date of Discharge: 03/30/24
-
Pending Results: No
Hospital Course
Discharge diagnosis:
Hemorrhoidal bleeding exacerbated by Eliquis use status post electrocautery and suture
Recent pulmonary embolism
Elevated liver function test
Fatty liver
Obesity due to excess calories
Consults: Colorectal surgery
Procedures:
03/30/consults: Colorectal surgery
Procedures:
03/30/2024 exam under anesthesia with electrocautery and suturing of bleeding hemorrhoid site
Hospital course:
28-year-old female with a past medical history of recently diagnosed PE on Eliquis, and recent rubber band ligation of internal hemorrhoid on 03/17/2024 was admitted for bleeding hemorrhoids with bowel movements, exacerbated by Eliquis.
Patient was seen in conjunction with colorectal surgery. Her Eliquis was held. She was monitored, her hemoglobin remained stable. She was not hypoxic, not short of breath, therefore she was not started on IV heparin drip.
She continued to have blood from her hemorrhoids with bowel movements. She underwent exam under anesthesia with electrocautery and suturing of her bleeding hemorrhoid on 03/30/2024. She did well postprocedure.
Patient was found to have mildly elevated liver function test. She had an abdominal ultrasound, which showed a fatty liver. She will be referred to GI in the office for monitoring.
Patient is medically stable and cleared by colorectal surgery for discharge. Colorectal surgery states that she can resume Eliquis 5 mg twice a day on the evening of 03/30/2024. She needs to follow-up with colorectal surgery in the office, as well
as her primary care doctor in 1 week.
Disposition: Home self-care
Discharge planning: Required 41-minute
Discharge Plan
-
Patient Disposition: Home (Routine Discharge)
Discharge Diagnosis/Procedures: Hemorrhoidal bleeding exacerbated by Eliquis use status post electrocautery and suture
Recent pulmonary embolism
Elevated liver function test
Fatty liver
Obesity due to excess calories
Condition: Good
Diet: Regular
Driving Restrictions: No driving for 24 hours
Bathing Restrictions: OK to Shower
Activity Restrictions/Additional Instructions:
Please follow-up with GI in the office for your fatty liver, colorectal surgery in the office as well as your primary care doctor in 1 week.
Referrals:
Sherin Diaz MD [Active] - in three to four weeks
Chivo Richards MD [Active] - in one to two weeks
Alyse Blair MD [Family Provider] - in one week
Prescriptions:
New
docusate sodium [Colace] 100 mg capsule
100 mg PO BID Qty: 60 0RF
Eliquis 5 mg tablet
5 mg PO BID Qty: 60 0RF
polyethylene glycol 3350 17 gram/dose powder
17 g PO DAILY Qty: 510 0RF
Continued
acetaminophen [Tylenol] 325 mg Tablet
650 mg PO Q6HPRN PRN (Reason: mild pain)
therapeutic multivitamin Tablet
1 tab PO DAILY
calcium polycarbophil [FiberCon] 625 mg Tablet
1,875 mg PO DAILY
Discontinued
Eliquis DVT-PE Treat 30D Start 5 mg (74 tabs) tablets,dose pack
See Rx Instructions .ROUTE .COMPLEX Qty: 74 0RF
Patient Comments:
03/28/2024: When pt resumes, pt would be taking 5mg po BID
Rx Instructions:
orally per package directions
Discharge Orders:
Discharge Patient (As Directed); Ordered 03/30/24
Ordered By: Devan Diaz
Discharge Date and Time
Print Language: AZERI
--- NOTE | 2024-03-30 15:03 | PTCARENOTE ---
pt back from OR/PACU no complints, able to eat and tolerated diet, able to get up and walk around the unit. Discharged as per orders.
== END 2024-03-30 15:31 | disposition home or self-care (01) | DRG 981 ==
LOC: 2 NORTH 19:25
PROVIDERS: Clinical Nurse Specialist Family Health; Emergency Medicine; Registered Nurse; ADMITTING PHYSICIAN Internal Medicine; ATTENDING PHYSICIAN Family Medicine; CONSULT PHYSICIAN Surgery; EMERGENCY PHYSICIAN Emergency Medicine; FAMILY PHYSICIAN Family Medicine
PROC: 0W3P7ZZ Control Bleeding in Gastrointestinal Tract, Via Natural or Artificial Opening (ICD-10-PCS; 2024-03-30)
DX: D68.32 Hemorrhagic disorder due to extrinsic circulating anticoagulants (principal); I26.99 Other pulmonary embolism without acute cor pulmonale; K62.5 Hemorrhage of anus and rectum; K62.6 Ulcer of anus and rectum; K64.4 Residual hemorrhoidal skin tags; K64.8 Other hemorrhoids; Z79.01 Long term (current) use of anticoagulants; Z68.30 Body mass index [BMI] 30.0-30.9, adult; E66.09 Other obesity due to excess calories; Z86.711 Personal history of pulmonary embolism
CPT/HCPCS: 76705; 80053; 80061; 80076; 84703; 85014; 85018; 85025; 85027; 85610; 85730; 86850; 86900; 86901; 99284

== ENCOUNTER 2024-04-26 10:57 | Emergency (ER) | payer OTHER, SELFPAY ==
[2024-04-26 10:59] VITALS: BP 125/7
--- NOTE | 2024-04-26 12:26 | ED.GENMED ---
History of Present Illness
General
Chief Complaint: Head Injury
Source: patient
Time Seen by Provider: 04/26/24 11:44
History of Present Illness
History of Present Illness:
29-year-old female with past medical history of pulmonary embolism presenting to the emergency department after she excellently hit her head on a metal hook last night while at work around 2 to 4 PM, awoke this morning with headache prompting her to
come to the ER for further evaluation today. Patient's main concern is that she is on Eliquis and was told if she had any head injury that she should be further evaluated. No loss consciousness, vomiting, visual changes or any other concerns
presently.
Past History
Past History
ED Past Medical History: Other (PE)
ED Past Surgical History: None
Social History
Tobacco: Non-smoker
Alcohol: Occasional
Drug: None
Personal: Single
Living: with family
Employment: Employed
Review of Systems
Review of Systems
All Other Systems: ROS reviewed and negative except as documented in HPI and ROS
Phy Exam
Physical Exam
Physical Exam:
GENERAL: Alert , in no apparent distress
EYE: conjunctiva clear
Head: Normocephalic atraumatic
NECK: Supple,
ENT: mmm.
LUNGS: no acute respiratory distress
NEUROLOGICAL: Alert and oriented
SKIN: Warm and dry, skin intact.
MUSCULOSKELETAL: well perfused.
PSYCH: Normal and appropriate interaction.
Scores
Heart Failure Risk
Heart Failure Risk Score: Not Applicable
Heart Score for Chest Pain Patients
STEMI patient?: Not applicable
Withdrawal Assessment of Alcohol
Withdrawal Assessment Completed?: Not applicable
Course
Orders/Labs/Results
Orders:
Orders
04/26/24 11:44
CT Head W/o Iv Contrast Urgent
Comment:
Reason For Exam: head injury, on eliquis
Vital Signs
Initial and Last Documented VS:
Initial Vital Signs
Temp Pulse Resp BP Pulse Ox
98.3 F 69 16 125/7 98
04/26/24 10:59 04/26/24 10:59 04/26/24 10:59 04/26/24 10:59 04/26/24 10:59
Last Documented Vital Signs
Temp Pulse Resp BP Pulse Ox
98.3 F 69 16 125/7 98
04/26/24 10:59 04/26/24 10:59 04/26/24 10:59 04/26/24 10:59 04/26/24 10:59
MDM/Problems Addressed
Differential Diagnosis Includes:
Minor head injury, concussion, minimal concern for intracranial bleeding but patient is on anticoagulants
MDM/Problems Addressed:
29-year-old female presenting to the emergency department for evaluation of head injury that occurred yesterday sometime between 2 PM and 4 PM. Patient awoke this morning with some more tenderness and headache. She is on Eliquis due to history of
PE. Overall based off mechanism and presentation I am less suspicious for intracranial bleeding but will obtain CT scan for further evaluation.
*Radiology
Radiology exam reviewed: radiology read reviewed
*Pulse Oximetry
Patient hypoxic: no
*Critical Care Note
Total Time (30-74mins, 75-104mins- exclusive of procedures): Not Applicable
Patient Management
Escalation/DeEscalation of care consider admission/obs:
Patient head CT is negative for any acute intracranial pathology. Stable for discharge home and aware of return precautions.
ED Attending Note
-
Portions of this chart may have been created with voice recognition software.� Occasional wrong word or��sound alike� substitutions may have occurred due to the inherent limitations of voice recognition software.
Discharge Plan
Departure
Patient Disposition: Home (Routine Discharge)
Date of Disposition: 04/26/24
Time of Disposition: 13:22
Patient with high blood pressure during this ER visit?: No
Discharge Problem:
Head injury
Instructions: Minor Head Injury (DC)
Prescriptions:
No Action
acetaminophen [Tylenol] 325 mg Tablet
650 mg PO Q6HPRN PRN (Reason: mild pain)
therapeutic multivitamin Tablet
1 tab PO DAILY
calcium polycarbophil [FiberCon] 625 mg Tablet
1,875 mg PO DAILY
docusate sodium [Colace] 100 mg capsule
100 mg PO BID Qty: 60 0RF
Eliquis 5 mg tablet
5 mg PO BID Qty: 60 0RF
polyethylene glycol 3350 17 gram/dose powder
17 g PO DAILY Qty: 510 0RF
Referrals:
Alyse Blair MD [Family Provider] -
Interventions
Interventions:
*Risk Screen - Suicide Last Done: 04/26/24 10:59
*General Assessment Last Done: 04/26/24 10:59
*Neglect/Abuse Screening Last Done: 04/26/24 10:59
ED- Fall Risk Assessment Last Done: 04/26/24 11:09
*Nursing Disposition Last Done: 04/26/24 13:24
ED- Neurological Assessment Last Done: 04/26/24 11:09
Discharge Date and Time
Print Language: OCCITAN
== END 2024-04-26 13:49 | disposition home or self-care (01) ==
LOC: EMR 10:57
PROVIDERS: EMERGENCY PHYSICIAN Emergency Medicine; FAMILY PHYSICIAN Family Medicine
DX: S09.90XA Unspecified injury of head, initial encounter (principal); W22.8XXA Striking against or struck by other objects, initial encounter; Z79.01 Long term (current) use of anticoagulants; Z86.711 Personal history of pulmonary embolism
CPT/HCPCS: 99284; 70450

== ENCOUNTER → 2024-09-23 12:31 | Outpatient (REF) | payer OTHER, SELFPAY | LOC: HWRAD 12:31 | PROVIDERS: ATTENDING PHYSICIAN Internal Medicine Critical Care Medicine; FAMILY PHYSICIAN Family Medicine | DX: R91.1 Solitary pulmonary nodule (principal) | CPT/HCPCS: 71250 ==